=== PATIENT | male | born 1940 | race Caucasian/White ===

== ENCOUNTER 2017-12-05 23:20 | Inpatient (IN) | payer OTHER, MEDICARE ==
[~2017-12-05] VITALS: Ht 172.7 cm; Wt 88.6 kg
--- NOTE | 2017-12-05 23:29 | ED GENERAL ADULT ---
History of Present Illness General Chief Complaint: General Adult Stated Complaint: BIBA, FEVER, AMS Source: patient, family, old records, EMS Exam Limitations: no limitations Vital Signs & Intake/Output Vital Signs & Intake/Output Vital Signs Date Time Temp Pulse Resp B/P B/P Pulse O2 O2 Flow FiO2 Mean Ox Delivery Rate 12/06 0314 Room Air 12/06 0307 98.0 64 20 93/50 98 Room Air 12/06 0146 100.4 12/06 0142 100.4 71 19 115/49 96 Room Air 12/06 0038 98.3 91 18 120/48 99 Room Air 12/06 0014 103.3 12/05 2326 103.3 88 23 153/60 98 Room Air ED Intake and Output 12/06 0000 12/05 1200 Intake Total 1000 Output Total Balance 1000 Intake, IV 1000 Patient 190 lb Weight Allergies Coded Allergies: acetaminophen (From PERCOCET) (Intermediate, HALLUCINATION 10/10/17) oxycodone (From PERCOCET) (Intermediate, HALLUCINATION 10/10/17) Reconcile Medications Amlodipine Besylate 5 MG TABLET 1 TAB PO DAILY htn (Reported) Atenolol 25 MG TABLET 1 TAB PO DAILY HTN (Reported) Imatinib Mesylate (Gleevec) 400 MG TABLET 400 MG PO DAILY cml (Reported) Prednisone 5 MG TABLET 2 TAB PO DAILY cml (Reported) Triage Note: PT BIBA FROM HOME FOR FEVER & AMS PER . PT ORIENTED TO PERSON ON ARRIVAL. BUT WONT ANSWER ANY OTHER QUESTIONS. PT FEBRILE 8 ALSO HAS A RASH ON RIGHT GROIN Triage Nurses Notes Reviewed? yes HPI: Patient was in his usual state of health until this evening when he went to bed earlier than normal. His went to check on him and found him febrile and confused in the bathroom. She then noticed a red area on his right upper thigh. Patient was slow to respond. His called EMS. Patient states that he has had a nonproductive cough since this evening. He denies any headache or neck pain. He denies any sore throat. There is no nausea or vomiting. Past History Travel History Traveled to [place] past 21 day No Medical History Any Pertinent Medical History? see below for history Cardiovascular: hypertension Renal: chronic kidney disease Cancer(s): leukemia Surgical History Surgical History: non-contributory Psychosocial History What is your primary language Upper Sorbian Tobacco Use: Cognitive Impairment ETOH Use: denies use Illicit Drug Use: denies illicit drug use, UTD Family History Hx Contributory? No Review of Systems Review of Systems Constitutional: Reports: see HPI, chills, fever. EENTM: Reports: no symptoms. Respiratory: Reports: see HPI, cough. Cardiovascular: Reports: no symptoms. GI: Reports: no symptoms. Genitourinary: Reports: no symptoms. Musculoskeletal: Reports: no symptoms. Skin: Reports: no symptoms. Neurological/Psychological: Reports: no symptoms. Hematologic/Endocrine: Reports: no symptoms. Immunologic/Allergic: Reports: no symptoms. All Other Systems: Reviewed and Negative Physical Exam Physical Exam General Appearance: well developed/nourished, alert, awake, anxious, moderate distress Head: atraumatic, normal appearance Eyes: Bilateral: PERRL, EOMI. Ears, Nose, Throat: normal pharynx, normal ENT inspection, DRY MUCOSA Neck: normal inspection, supple, full range of motion, NO MENENGEAL SIGNS Respiratory: normal breath sounds, chest non-tender, no respiratory distress, lungs clear Cardiovascular: regular rate/rhythm, normal peripheral pulses, NO MURMUR Gastrointestinal: normal bowel sounds, soft, non-tender, no organomegaly Back: normal inspection, normal range of motion Extremities: normal inspection, normal capillary refill, normal range of motion, pedal edema Neurologic/Psych: no motor/sensory deficits, awake, alert, oriented x 3, normal mood/affect Skin: ERYTHMEA AND WARMTH RIGHT UPPER THIGH EXTENDING INTO GROIN Lymphatic: RIGHT INGUINAL ADENOPATHY Core Measures ACS in differential dx? No CVA/TIA Diagnosis: No Sepsis Present: Yes Sepsis Focused Exam Completed? Yes ED Sepsis Exam Date of Focused Sepsis Exam: 12/06/17 Time of Focused Sepsis Exam: 0047 Sepsis Cardiac Exam: Regular Rate/Rhythm Sepsis Resp Exam: CTA Sepsis Cap Refill Exam: <2 Sec Sepsis Peripheral Pulse Exam: Normal Sepsis Peripheral Pulse Location: Radial Sepsis Skin Color Exam: Normal for Ethnicity Skin Temp/Moisture Exam: Warm/Dry Progress Differential Diagnoses I considered the following diagnoses in my evaluation of the patient: [SEPSIS, CELLULTIIS, FORNYR'S] Plan of Care: Orders Procedure Date/time Status CBC WITHOUT DIFFERENTIAL 12/07 599 Active BASIC ELECTROLYTES PLUS BUN&CR 12/07 599 Active Heart Healthy Diet 12/06 B Active EKG 12/06 0341 Active Weight 12/06 0313 Complete Vital Signs 12/06 031 Complete Teach/Educate 12/06 312 Active Pain Treatment and Response 12/06 312 Active Nutritional Intake, Monitor 12/06 312 Active Isolation 12/06 312 Active Intake & Output 12/06 312 Active Patient Care Conference 12/06 312 Active Activity/Ambulation 12/06 312 Active LACTIC ACID 12/06 228 Complete Pathway - chart 12/06 0216 Active Patient Data 12/06 020 Active ED Holding Orders 12/06 146 Active Admit to inpatient 12/06 014 Active Vital Signs 12/06 014 Active Code Status 12/06 014 Active House Staff 12/06 UNK Active Vital Signs 12/06 UNK Complete Elevate 12/06 UNK Active Activity/Ambulation 12/06 UNK Active Telemetry/Medical Billing Service 12/05 232 Complete CULTURE,URINE 12/05 2328 Active BLOOD CULTURE 12/05 2328 Active URINALYSIS 12/05 232 Complete TROPONIN LEVEL 12/05 232 Complete LACTIC ACID 12/05 2328 Complete COMPREHENSIVE METABOLIC PANEL 12/05 2328 Complete CBC WITHOUT DIFFERENTIAL 12/05 2328 Complete EKG 12/05 2328 Active Intake & Output 12/05 2325 Active Current Medications Sig/Ross Start time Last Medication Dose Stop Time Status Admin Amlodipine Besylate 5 MG DAILY 12/06 899 AC (Norvasc) Atenolol 25 MG DAILY 12/06 899 AC (Tenormin) Fluconazole 100 MG DAILY 12/06 899 AC (Diflucan 100MG Tab) Prednisone 5 MG DAILY 12/06 09 AC Heparin Sodium 5,000 UNIT Q8 12/06 0600 AC 12/06 (Porcine) 0608 Laboratory Tests 12/06/17 0220: Lactic Acid 0.8 12/05/17 2345: Urine Color STRAW, Urine Clarity HAZY H, Urine pH 6.0, Ur Specific [place] 1.020, Urine Protein 100 H, Urine Ketones NEG, Urine Nitrite NEG, Urine Bilirubin NEG, Urine Urobilinogen 0.2, Ur Leukocyte Esterase NEG, Ur Microscopic SEDIMENT EXAMINED, Urine RBC 10-15 H, Urine WBC 1-3 H, Ur Epithelial Cells RARE, Urine Bacteria RARE H, Urine Mucus FEW, Urine Hemoglobin LARGE H, Urine Glucose NEG 12/05/17 2330: Anion Gap 15, Estimated GFR 15 L, BUN/Creatinine Ratio 16.4, Glucose 75, Lactic Acid 1.6, Calcium 8.1 L, Total Bilirubin 0.7, AST 21, ALT 30, Alkaline Phosphatase 35, Troponin I 0.08, Total Protein 5.6 L, Albumin 3.2 L, Globulin 2.4, Albumin/Globulin Ratio 1.3, CBC w Diff MAN DIFF ORDERED, RBC 3.05 L, MCV 94.7 H, MCH 31.6 H, MCHC 33.3, RDW 17.0 H, MPV 8.4, Gran % 92.0 H, Lymphocytes % 2.4 L, Monocytes % 5.5, Eosinophils % 0.1, Basophils % 0, Absolute Granulocytes 19.6 H, Segmented Neutrophils 90 H, Absolute Lymphocytes 0.5 L, Lymphocytes 4 L, Monocytes 6, Absolute Monocytes 1.2 H, Absolute Eosinophils 0, Absolute Basophils 0, Platelet Estimate ADEQUATE, Normochromic RBCs VERIFIED, Poikilocytosis 1+, Ovalocytes 1+, Elliptocytes FEW, Fld Total RBCs Counted 100 Microbiology 12/05 2344 URINE ROUT: Urine Culture - RECD 12/05 2344 BLOOD: Blood Culture - RECD 12/05 2329 BLOOD: Blood Culture - RECD Diagnostic Imaging: Viewed by Me: Radiology Read, CT Scan. Discussed w/RAD: Radiology Read, CT Scan. Radiology Impression: PATIENT: NIKHIL ARTHUR PRESENT AGE: 77 PATIENT ACCOUNT NO: [id number] : 41 LOCATION: [facility] ORDERING PHYSICIAN: Evin Nayak MD SERVICE DATE: 12/05/17 EXAM TYPE: CAT - CT ABD & PELVIS W/O IV CONTRAS EXAMINATION: CT ABDOMEN AND PELVIS WITHOUT CONTRAST CLINICAL INFORMATION: 77-year-old male patient with cellulitis extending into groin. Sepsis. Presumptive diagnoses: Teja's gangrene COMPARISON: None TECHNIQUE: Multidetector volumetric imaging was performed from the superior aspect of the liver through the pubic symphysis. Sagittal and coronal reformatted images were obtained on the technologist's workstation. DLP: 588 mGy-cm FINDINGS: Semiconductor Wafer Inspector: The patient's had a total right hip arthroplasty and extensive posterior spinal fusion of the thoracolumbar spine. This hardware results in significant beam hardening artifact which limits the study. There is mild dilatation of air-filled loops of jejunum but no obstruction is suspected. LUNG BASES: There is some calcification of the aortic valve. A pleural-based nodule measuring 1.2 cm is located in the posterior right costophrenic sulcus. Breathing motion artifact limits evaluation of the lungs. There is a small hiatal hernia. LIVER, GALLBLADDER, AND BILIARY TREE: The liver is normal in size showing no masses or bile duct dilatation. The gallbladder if present is entirely contracted. PANCREAS: Unremarkable. SPLEEN: Unremarkable. ADRENAL GLANDS: Unremarkable. KIDNEYS AND URETERS: Multiple artifacts obscure the renal beds and kidneys. There is bilateral perinephric stranding thought to be chronic. Neither kidney shows evidence of hydronephrosis. Probable exophytic cyst arises in both lower poles. BLADDER: Normal as visualized but evaluation limited. GASTROINTESTINAL TRACT: Multiple diverticula arise from the left colon. There is no sign of free fluid or free air. ABDOMINAL WALL: There is no indication of subcutaneous emphysema of the groin as would be expected in Teja's gangrene. LYMPH NODES: A large soft tissue mass measuring 4 cm is located in the right groin. This could represent an abnormally enlarged lymph node. Other smaller inguinal lymph nodes are seen bilaterally. VASCULAR: Diffuse calcific atherosclerosis is present. The aorta is tortuous. PELVIC VISCERA: The prostate does not appear to be enlarged. Small fat-containing inguinal hernias are seen bilaterally. OSSEOUS STRUCTURES: There are multiple endplate depressions of the lower thoracic and upper lumbar spine. The posterior spinal fusion traverses these levels. Defects in the left iliac bone are due to bone harvest sites for the posterior spinal fusion. There is no indication of hardware failure. IMPRESSION: 1. No findings that would support a diagnosis of Teja's gangrene. 2. Right inguinal soft tissue mass, question node. 3. Study limited by motion and beam hardening artifacts. DICTATED BY: Ward Ryder MD DATE/TIME DICTATED:12/06/1755 PHARMACIST PER DIEM:ANNMARIE DATE/TIME TRANSCRIBED:12/06/1755 CONFIDENTIAL, DO NOT COPY WITHOUT APPROPRIATE AUTHORIZATION. <Electronically signed in Other Vendor System> SIGNED BY: Ward Ryder MD 12/06/17 0118 CXR Impression: PATIENT: NIKHIL ARTHUR PRESENT AGE: 77 PATIENT ACCOUNT NO: [id number] : 41 LOCATION: [facility] ORDERING PHYSICIAN: Evin Nayak MD SERVICE DATE: 12/05/17 EXAM TYPE: RAD - XRY-PORTABLE CHEST XRAY EXAMINATION: XR PORTABLE CHEST CLINICAL INFORMATION: 77-year-old male patient with cough and fever. COMPARISON: None TECHNIQUE: Portable AP semierect view of the chest was obtained. FINDINGS: The heart is top normal in size. There is moderate uncoiling of the thoracic aorta. Lungs are symmetrically aerated and clear showing no sign of consolidation or atelectasis. IMPRESSION: No pneumonia. DICTATED BY: Ward Ryder MD DATE/TIME DICTATED: 12/06/17114 PHARMACIST PER DIEM:ANNMARIE DATE/TIME TRANSCRIBED:12/06/17114 CONFIDENTIAL, DO NOT COPY WITHOUT APPROPRIATE AUTHORIZATION. <Electronically signed in Other Vendor System> SIGNED BY: Ward Ryder MD 12/06/17118 Initial ED EKG: SR WITH PACS, NSSTRT CHANGES Prior EKG: unchanged Rhythm Strip: normal sinus rhythm Departure Departure Disposition: STILL A PATIENT Condition: Guarded Clinical Impression Primary Impression: Sepsis Secondary Impressions: Cellulitis Referrals: Jose MUHAMMAD,Paras Sousa (PCP/Family) Departure Forms: Customer Survey General Discharge Information Admission Note Spoke With: Leslye Rios MD Documentation of Exam: Documentation of any treatments & extenuating circumstances including Concerns Regarding Discharge (functional status, medication knowledge or non-compliance, living conditions, etc.) that warrant an admission rather than observation: [IV fluids, IV antibiotics, follow-up cultures, ID consultation, renal consultation] Critical Care Note Critical Care Note Critical Care Time: mins: (90 MIN)
[2017-12-06 00:11] LABS: ABSOLUTE BASOPHIL COUNT 0 /CUMM (0.0-0.2); ABSOLUTE EOSINOPHIL COUNT 0 /CUMM (0.0-0.7); ABSOLUTE GRANULOCYTE CT 19.6 /CUMM (1.4-6.5); ABSOLUTE LYMPH COUNT 0.5 /CUMM (1.2-3.4); ABSOLUTE MONOCYTE COUNT 1.2 /CUMM (0.10-0.60); BASOPHIL % 0 % (0.0-2.0); EOSINOPHIL % 0.1 % (0-5); HEMATOCRIT 28.9 % (42-52); MEAN CORPUSCULAR HGB 31.6 PG (27.0-31.0); MEAN CORPUSCULAR HGB CONC 33.3 G/DL (33.0-37.0); MEAN CORPUSCULAR VOLUME 94.7 FL (80.0-94.0); MEAN PLATELET VOLUME 8.4 FL (7.4-10.4); PLATELET COUNT 246 /CUMM (130-400); RED BLOOD CELL CT 3.05 /CUMM (4.70-6.10); WHITE BLOOD CELL COUNT 21.3 /CUMM (4.8-10.8)
--- NOTE | 2017-12-06 01:18 | CT SCAN REPORT ---
EXAMINATION: CT ABDOMEN AND PELVIS WITHOUT CONTRAST CLINICAL INFORMATION: 77-year-old male patient with cellulitis extending into groin. Sepsis. Presumptive diagnoses: Teja's gangrene COMPARISON: None TECHNIQUE: Multidetector volumetric imaging was performed from the superior aspect of the liver through the pubic symphysis. Sagittal and coronal reformatted images were obtained on the technologist's workstation. DLP: 588 mGy-cm FINDINGS: Yoga Teacher: The patient's had a total right hip arthroplasty and extensive posterior spinal fusion of the thoracolumbar spine. This hardware results in significant beam hardening artifact which limits the study. There is mild dilatation of air-filled loops of jejunum but no obstruction is suspected. LUNG BASES: There is some calcification of the aortic valve. A pleural-based nodule measuring 1.2 cm is located in the posterior right costophrenic sulcus. Breathing motion artifact limits evaluation of the lungs. There is a small hiatal hernia. LIVER, GALLBLADDER, AND BILIARY TREE: The liver is normal in size showing no masses or bile duct dilatation. The gallbladder if present is entirely contracted. PANCREAS: Unremarkable. SPLEEN: Unremarkable. ADRENAL GLANDS: Unremarkable. KIDNEYS AND URETERS: Multiple artifacts obscure the renal beds and kidneys. There is bilateral perinephric stranding thought to be chronic. Neither kidney shows evidence of hydronephrosis. Probable exophytic cyst arises in both lower poles. BLADDER: Normal as visualized but evaluation limited. GASTROINTESTINAL TRACT: Multiple diverticula arise from the left colon. There is no sign of free fluid or free air. ABDOMINAL WALL: There is no indication of subcutaneous emphysema of the groin as would be expected in Teja's gangrene. LYMPH NODES: A large soft tissue mass measuring 4 cm is located in the right groin. This could represent an abnormally enlarged lymph node. Other smaller inguinal lymph nodes are seen bilaterally. VASCULAR: Diffuse calcific atherosclerosis is present. The aorta is tortuous. PELVIC VISCERA: The prostate does not appear to be enlarged. Small fat-containing inguinal hernias are seen bilaterally. OSSEOUS STRUCTURES: There are multiple endplate depressions of the lower thoracic and upper lumbar spine. The posterior spinal fusion traverses these levels. Defects in the left iliac bone are due to bone harvest sites for the posterior spinal fusion. There is no indication of hardware failure. IMPRESSION: 1. No findings that would support a diagnosis of Teja's gangrene. 2. Right inguinal soft tissue mass, question node. 3. Study limited by motion and beam hardening artifacts.
--- NOTE | 2017-12-06 01:19 | RADIOLOGY REPORT ---
EXAMINATION: XR PORTABLE CHEST CLINICAL INFORMATION: 77-year-old male patient with cough and fever. COMPARISON: None TECHNIQUE: Portable AP semierect view of the chest was obtained. FINDINGS: The heart is top normal in size. There is moderate uncoiling of the thoracic aorta. Lungs are symmetrically aerated and clear showing no sign of consolidation or atelectasis. IMPRESSION: No pneumonia.
--- NOTE | 2017-12-06 02:07 | History & Physical ---
Kirk Benitez 12/06/17 0206: General Information and HPI MD Statement: I have seen and personally examined MILO ARTHUR and documented this H&P. The patient is a 77 year old M who presented with a patient stated chief complaint of [chills x1day]. 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 Patient is alert and oriented 3, but confused as to why he came into the ED today. Patient's was called, who states that patient has been lethargic for the past week. States patient had went to bed early today, and woke up confused with a high fever and a rash on the right lower extremity. Patient's states that she only noticed a rash today. Patient's denied any falls per patient, states that he is alert and oriented, continent of urine and feces at home. Patient's became anxious on the phone, asked questions regarding prognosis, was unable to give further history. Past medical history: CKD stage IV/ESRD, CML, hypertension, melanoma Allergies: Oxycodone Surgeries: Melanoma removal Social history: Unobtainable Review of systems Positive for: Rash, chills, fever Negative for: Dizziness, weight loss, chest pain, shortness of breath, urinary symptoms, lower extremity edema Allergies/Medications Allergies: Coded Allergies: acetaminophen (From PERCOCET) (Intermediate, HALLUCINATION 10/10/17) oxycodone (From PERCOCET) (Intermediate, HALLUCINATION 10/10/17) Past History Travel History Traveled to [place] past 21 day No Medical History Cardiovascular: hypertension Renal: chronic kidney disease Cancer(s): leukemia Surgical History Surgical History: non-contributory Past Family/Social History Psychosocial History ETOH Use: denies use Illicit Drug Use: denies illicit drug use, UTD Review of Systems Review of Systems Constitutional: Reports: see HPI. Exam & Diagnostic Data Last 24 Hrs of Vital Signs/I&O Vital Signs Date Time Temp Pulse Resp B/P B/P Pulse O2 O2 Flow FiO2 Mean Ox Delivery Rate 12/06 0314 Room Air 12/06 0307 98.0 64 20 93/50 98 Room Air 12/06 0146 100.4 08/01 0142 100.4 71 19 115/49 96 Room Air 12/06 0038 98.3 91 18 120/48 99 Room Air 12/06 0014 103.3 12/05 2326 103.3 88 23 153/60 98 Room Air Intake & Output 12/06 0800 12/06 0000 12/05 1600 Intake Total 1350 1000 Output Total Balance 1350 1000 Intake, IV 1350 1000 Patient 195 lb 190 lb Weight Weight Bed scale Measurement Method Physical Exam General Appearance Alert, Oriented X3, No Acute Distress, incontinent of feces and urine with stool on thighs Skin large erythematous rash on R thigh extending to scrotum and L thigh marked in surgical marker; fungal rash in intertriginous area under abdominal pannus; scrotal swelling with excoriations; several small red/violaceous lesions on b/l upper extremities Skin Temp/Moisture Exam: Warm/Dry Cardiovascular Regular Rate, Normal S1, Normal S2 Lungs Clear to Auscultation, Normal Air Movement Abdomen Soft, No Tenderness, white erythematous lesion on underside of pannus in intertriginous area Neurological Normal Speech Extremities large swelling to R elbow, mobile, nontender; small swelling to L tibial tuberosity legion mobile nontender Body Front and Back (Adult) 1) scrotal swelling 2) red nonraised rash, nonpurulent Last 24 Hrs of Labs/[place]: Laboratory Tests 12/06/17 0220: Lactic Acid 0.8 12/05/17 2345: Urine Color STRAW, Urine Clarity HAZY H, Urine pH 6.0, Ur Specific [place] 1.020, Urine Protein 100 H, Urine Ketones NEG, Urine Nitrite NEG, Urine Bilirubin NEG, Urine Urobilinogen 0.2, Ur Leukocyte Esterase NEG, Ur Microscopic SEDIMENT EXAMINED, Urine RBC 10-15 H, Urine WBC 1-3 H, Ur Epithelial Cells RARE, Urine Bacteria RARE H, Urine Mucus FEW, Urine Hemoglobin LARGE H, Urine Glucose NEG 12/05/17 2330: Anion Gap 15, Estimated GFR 15 L, BUN/Creatinine Ratio 16.4, Glucose 75, Lactic Acid 1.6, Calcium 8.1 L, Total Bilirubin 0.7, AST 21, ALT 30, Alkaline Phosphatase 35, Troponin I 0.08, Total Protein 5.6 L, Albumin 3.2 L, Globulin 2.4, Albumin/Globulin Ratio 1.3, CBC w Diff MAN DIFF ORDERED, RBC 3.05 L, MCV 94.7 H, MCH 31.6 H, MCHC 33.3, RDW 17.0 H, MPV 8.4, Gran % 92.0 H, Lymphocytes % 2.4 L, Monocytes % 5.5, Eosinophils % 0.1, Basophils % 0, Absolute Granulocytes 19.6 H, Segmented Neutrophils 90 H, Absolute Lymphocytes 0.5 L, Lymphocytes 4 L, Monocytes 6, Absolute Monocytes 1.2 H, Absolute Eosinophils 0, Absolute Basophils 0, Platelet Estimate ADEQUATE, Normochromic RBCs VERIFIED, Poikilocytosis 1+, Ovalocytes 1+, Elliptocytes FEW, Fld Total RBCs Counted 100 Microbiology 12/05 2344 URINE ROUT: Urine Culture - RECD 12/05 2344 BLOOD: Blood Culture - RECD 12/05 2329 BLOOD: Blood Culture - RECD Assessment/Plan Assessment: Mr Arthur is a 77yo M with PMH 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, CKD stage 4/5, melanoma, HTN, BIBA with scrotal swelling and fever, A/Ox3 but unable to give history; admitted for scrotal cellulitis #Scrotal Cellulitis -Area of erythema marked with surgical marker #Toxic encephalopathy #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 home meds #CKD 4/5 will talk with nephro in the a.m. #Hypertension DVT prophylaxis IV access Regular diet Full code Disposition As Ranked By This Provider Problem List: 1. Cellulitis Core Measures/Misc (01/22) Acute Coronary Syndrome ACS Diagnosis: No Congestive Heart Failure Congestive Heart Failure Diagnosis No Cerebrovascular Accident CVA/TIA Diagnosis: No VTE (View Protocol) VTE Risk Factors Age>40 No Mechanical VTE Prophylaxis d/t N/A MechProphylax Ordered No VTE Pharm Prophylaxis d/t NA PharmProphylax ordered Sepsis (View protocol) Sepsis Present: No If YES complete Sepsis Event Note If YES complete Sepsis Event Note Sandhya Hodges 12/06/17 0250: General Information and HPI Allergies/Medications Home Med list Amlodipine Besylate 5 MG TABLET 1 TAB PO DAILY htn (Reported) Atenolol 25 MG TABLET 1 TAB PO DAILY HTN (Reported) Imatinib Mesylate (Gleevec) 400 MG TABLET 400 MG PO DAILY cml (Reported) Prednisone 5 MG TABLET 2 TAB PO DAILY cml (Reported) Core Measures/Misc (01/22) Sepsis (View protocol) If YES complete Sepsis Event Note If YES complete Sepsis Event Note Resident Review Statement Resident Statement: examined this patient, discussed with international marketing coordinator, agreed with international marketing coordinator Other Findings: 77-year-old man from home, with past medical history significant for CML in remission, on Gleevec and chronic prednisone, CKD stage V/end-stage renal disease, history of melanoma, brought in by for altered mental status and a rash which she noticed on his right thigh. We are unable to obtain any history from patient and give us minimal history. Apparently she noticed him to be altered and noticed a rash on his thigh on day of admission. This was associated with some undocumented fevers and chills and she called the ambulance. Vitals in ED T-max 103.3, heart rate 71, respiratory rate 19, blood pressure 153/60 trended down to 115/49 on examination he was awake and alert oriented to person place and date however he was unable to give any further history as to why he was here in this hospital was not able to tell if any of his medications. Examination significant for erythema this nonraised rash which extended from his right thigh over inguinal region to left thigh. His scrotal area was swollen with some skin excoriation and some whitish lesion in inguinal area. When we saw him he was incontinent with urine and stool. Labs significant for leukocytosis of 21.3 with left shift, anemia of chronic disease, normal lactic acid. CT abdomen and pelvis without IV contrast was significant for a 4 cm soft tissue mass in the right groin Problem list: AMS Scrotal cellulitis secondary to bacterial versus fungal CML on Gleevec Hypertension Plan: Admit to general medicine floor, vitals per protocol He was given vancomycin and ceftazidime in the ED, will continue with IV Unasyn and p.o. fluconazole to cover for possible fungal etiology, pending blood cultures ID consult in a.m. Per he was supposed to see Dr. Callahan today and have Epogen dosed. Please inform nephro of his admission We will continue his home medications of prednisone, atenolol, Norvasc. We do not have Gleevec, this will have to be brought from home. DVT prophylaxis subcu heparin Patient is a full code Gabriel MUHAMMAD,Leslye 12/06/17 0402: Core Measures/Misc (01/22) Sepsis (View protocol) If YES complete Sepsis Event Note If YES complete Sepsis Event Note Attending MD Review Statement Attending Statement Attending MD Statement: examined this patient, discuss w/resident/PA/NET APPLICATION ARCHITECT, agreed w/resident/PA/NET APPLICATION ARCHITECT Attending Assessment/Plan: This is a 77-year-old male admitted to the hospital after being found confused in the bathroom by his . He was admitted to the hospital with sepsis secondary to scrotal cellulitis. In the emergency department patient received ceftaz and vancomycin. We will follow-up blood cultures, monitor CBC and fever curve. Patient will remain on Unasyn and an infectious disease consultation has been placed.
[2017-12-06 03:07] VITALS: BP 93/50
[2017-12-06] MEDS ORDERED: AMLODIPINE BESYL5 M1 PO (04:59)
[2017-12-06] MEDS ORDERED: GLEEVEC400 M1 PO (04:59)
[2017-12-06] MEDS ORDERED: PREDNISONE5 M1 PO (04:59)
[2017-12-06] MEDS ORDERED: ATENOLOL25 M1 PO (05:03)
[2017-12-06 07:09] VITALS: BP 90/50
--- NOTE | 2017-12-06 08:08 | PN- Housestaff ---
See Addendum Subjective Follow-up For: Scrotal cellulitis Subjective: Low grade temperature overnight that has since resolved this AM. Patient denies any pain or swelling in the scrotal or inguinal region. Patient states he thinks his rash is improving, but admits to being fatigued this morning and has not gotten up yet. Patient denies chest pain, dyspnea, diarrhea, dysuria, and chills. Patient otherwise is tolerating treatment as required. Review of Systems Constitutional: Reports: see HPI. Objective Last 24 Hrs of Vital Signs/I&O Vital Signs Date Time Temp Pulse Resp B/P B/P Pulse O2 O2 Flow FiO2 Mean Ox Delivery Rate 12/06 0821 53 90/50 / 0820 53 90/50 12/06 0709 98.7 53 20 90/50 97 Room Air 12/06 0314 Room Air 12/06 0307 98.0 64 20 93/50 98 Room Air 12/06 0146 100.4 12/06 0142 100.4 71 19 115/49 96 Room Air 12/06 0038 98.3 91 18 120/48 99 Room Air 12/06 0014 103.3 12/05 2326 103.3 88 23 153/60 98 Room Air Intake & Output 12/06 1600 12/06 0800 08 0000 Intake Total 1470 1000 Output Total Balance 1470 1000 Intake, IV 1350 1000 Intake, Oral 120 Patient 195 lb 190 lb Weight Weight Bed scale Measurement Method Physical Exam General Appearance: Alert, Oriented X3, Cooperative, Mild Distress Skin: Erythematous lesion noted in right injuinal region extending to scrotal region. Non-tender on palpation, no significant edema noted. HEENT: Atraumatic, PERRLA Neck: Supple, No JVD Cardiovascular: Regular Rate, Normal S1, Normal S2 Lungs: Clear to Auscultation, Normal Air Movement Abdomen: Soft, No Tenderness Extremities: Normal Pulses Assessment/Plan Assessment: Mr Obrien is a 77yo M with PMH 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, CKD stage 4/5, melanoma, HTN, BIBA with scrotal swelling and fever, A/Ox3 but unable to give history; admitted for scrotal cellulitis #Scrotal Cellulitis -Area of erythema marked with surgical marker #Toxic encephalopathy #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 home meds #CKD 4/5 #Hypertension Problem List: 1. Cellulitis Pain Ratin Pain Location: No pain noted on exam Pain Goal: Remain pain free Pain Plan: As above Tomorrow's Labs & Rationales: CBC BEP
[2017-12-06 08:50] LABS: ABSOLUTE BASOPHIL COUNT 0 /CUMM (0.0-0.2); ABSOLUTE EOSINOPHIL COUNT 0 /CUMM (0.0-0.7); ABSOLUTE GRANULOCYTE CT 30.7 /CUMM (1.4-6.5); ABSOLUTE MONOCYTE COUNT 1.8 /CUMM (0.10-0.60); BASOPHIL % 0.1 % (0.0-2.0); EOSINOPHIL % 0 % (0-5); GRANULOCYTE % 91.6 % (42.2-75.2); HEMATOCRIT 27.3 % (42-52); MEAN CORPUSCULAR HGB 31.4 PG (27.0-31.0); MEAN CORPUSCULAR HGB CONC 33.2 G/DL (33.0-37.0); MEAN CORPUSCULAR VOLUME 94.5 FL (80.0-94.0); MEAN PLATELET VOLUME 7.6 FL (7.4-10.4); PLATELET COUNT 222 /CUMM (130-400); RED BLOOD CELL CT 2.89 /CUMM (4.70-6.10)
[2017-12-06 09:01] LABS: WHITE BLOOD CELL COUNT 33.5 /CUMM (4.8-10.8)
[2017-12-06 14:10] VITALS: BP 95/50
--- NOTE | 2017-12-06 16:14 | Cons- Infect Disease ---
General Information and HPI Consulting Request Date of Consult: 12/06/17 Requested By: Ryder Chandler MD Reason for Consult: Rule out scrotal cellulitis Source of Information: patient History of Present Illness: This is a 77-year-old man with a history of hypertension, chronic kidney disease and CML, maintained on Gleevec and prednisone, who noted a rash in his right groin 1 week prior to admission, admitted on December 05 with the acute onset of fever, chills and altered mental status. On admission he was febrile to 103.3. Laboratory data revealed a white blood cell count of 21,000, BUN/creatinine 64 and 3.9, with normal liver enzymes. Urinalysis 10-15 RBC/1-3 WBCs. Chest x-ray was negative. CT of the abdomen and pelvis was negative. He was given Vancomycin and Ceftazidime in the emergency room and this morning was changed to Unasyn and Fluconazole. He appears to have defervesced overnight and his mental status has normalized. At present he does not offer any complaints. He does report spending time outdoors, for example mowing his lawn. He does live in an area with deer but denies any recent tick bites. Allergies/Medications Allergies: Coded Allergies: acetaminophen (From PERCOCET) (Intermediate, HALLUCINATION 10/10/17) oxycodone (From PERCOCET) (Intermediate, HALLUCINATION 10/10/17) Home Med List: Amlodipine Besylate 5 MG TABLET 1 TAB PO DAILY htn (Reported) Atenolol 25 MG TABLET 1 TAB PO DAILY HTN (Reported) Imatinib Mesylate (Gleevec) 400 MG TABLET 400 MG PO DAILY cml (Reported) Prednisone 5 MG TABLET 2 TAB PO DAILY cml (Reported) Past History Travel History Traveled to [place] past 21 day No Medical History Blood Transfusion Hx: No Neurological: NONE EENT: NONE Cardiovascular: hypertension Respiratory: NONE Gastrointestinal: NONE Hepatic: NONE Renal: chronic kidney disease Musculoskeletal: NONE Psychiatric: NONE Endocrine: NONE Blood Disorders: NONE Cancer(s): melanoma, CML CLIENT EXECUTIVE/Reproductive: NONE Isolation History: Standard Surgical History Surgical History: 1 Psychosocial History Where Do You Live? Home Smoking Status: Never Smoked ETOH Use: denies use Illicit Drug Use: denies illicit drug use, UTD Review of Systems Review of Systems All Other Systems: Reviewed and Negative Exam & Diagnostic Data Last 24 Hrs of Vital Signs/I&O Vital Signs Date Time Temp Pulse Resp B/P B/P Pulse O2 O2 Flow FiO2 Mean Ox Delivery Rate 12/06 1410 97.8 62 20 95/50 97 Room Air 12/06 0821 53 90/50 12/06 0820 53 90/50 12/06 0709 98.7 53 20 90/50 97 Room Air 12/06 0314 Room Air 12/06 0307 98.0 64 20 93/50 98 Room Air 12/06 0146 100.4 12/06 0142 100.4 71 19 115/49 96 Room Air 12/06 0038 98.3 91 18 120/48 99 Room Air 12/06 0014 103.3 12/05 2326 103.3 88 23 153/60 98 Room Air Intake & Output 12/06 1600 12/06 0800 12/06 0000 Intake Total 750 1470 1000 Output Total 300 Balance 450 1470 1000 Intake, IV 1350 1000 Intake, Oral 750 120 Output, Urine 300 Patient 195 lb 190 lb Weight Weight Bed scale Measurement Method Physical Exam Other Physical Findings: He is awake and alert in no acute distress. T-max 103.3. Skin reveals a rash in the right groin, not warm or tender to palpation, with a clearing center, with a mild erythematous area in the left groin and with mild erythema in the suprapubic area. HEENT exam is negative. Neck is supple with no adenopathy. Lungs are clear. Heart regular rhythm with no murmur. Abdomen is soft, nontender with positive bowel sounds. Back no CVA tenderness. Extremities no cyanosis, clubbing or edema. Neuro is without focality. Last 24 Hours of Lab Results: Laboratory Tests 12/06 12/06 0840 0220 Chemistry Sodium (137 - 145 mmol/L) 141 Potassium (3.5 - 5.1 mmol/L) 4.2 Chloride (98 - 107 mmol/L) 113 H Carbon Dioxide (22 - 30 mmol/L) 15 L Anion Gap (5 - 16) 13 BUN (9 - 20 mg/dL) 65 H Creatinine (0.7 - 1.2 mg/dL) 4.2 H Estimated GFR (>60 ml/min) 14 L BUN/Creatinine Ratio (7 - 25 %) 15.5 Lactic Acid (0.7 - 2.1 mmol/L) 0.8 Hematology CBC w Diff MAN DIFF ORDERED WBC (4.8 - 10.8 /CUMM) 33.5 *H RBC (4.70 - 6.10 /CUMM) 2.89 L Hgb (14.0 - 18.0 G/DL) 9.1 L Hct (42 - 52 %) 27.3 L MCV (80.0 - 94.0 FL) 94.5 H MCH (27.0 - 31.0 PG) 31.4 H MCHC (33.0 - 37.0 G/DL) 33.2 RDW (11.5 - 14.5 %) 17.0 H Plt Count (130 - 400 /CUMM) 222 MPV (7.4 - 10.4 FL) 7.6 Gran % (42.2 - 75.2 %) 91.6 H Lymphocytes % (20.5 - 51.1 %) 2.9 L Monocytes % (1.7 - 9.3 %) 5.4 Eosinophils % (0 - 5 %) 0 Basophils % (0.0 - 2.0 %) 0.1 Absolute Granulocytes (1.4 - 6.5 /CUMM) 30.7 H Segmented Neutrophils (42.2 - 75.2 %) 89 H Band Neutrophils (0.0 - 5.0 %) 2 Absolute Lymphocytes (1.2 - 3.4 /CUMM) 1.0 L Lymphocytes (20.5 - 51.1 %) 4 L Monocytes (1.7 - 9.3 %) 4 Absolute Monocytes (0.10 - 0.60 /CUMM) 1.8 H Absolute Eosinophils (0.0 - 0.7 /CUMM) 0 Absolute Basophils (0.0 - 0.2 /CUMM) 0 Metamyelocytes (0.0 - 1.0 %) 1 Platelet Estimate (ADEQUATE) VERIFIED BY SMEAR Normocytic RBCs VERIFIED Normochromic RBCs VERIFIED 12/05 12/05 2345 2330 Chemistry Sodium (137 - 145 mmol/L) 142 Potassium (3.5 - 5.1 mmol/L) 4.1 Chloride (98 - 107 mmol/L) 111 H Carbon Dioxide (22 - 30 mmol/L) 15 L Anion Gap (5 - 16) 15 BUN (9 - 20 mg/dL) 64 H Creatinine (0.7 - 1.2 mg/dL) 3.9 H Estimated GFR (>60 ml/min) 15 L BUN/Creatinine Ratio (7 - 25 %) 16.4 Glucose (65 - 99 mg/dL) 75 Lactic Acid (0.7 - 2.1 mmol/L) 1.6 Calcium (8.4 - 10.2 mg/dL) 8.1 L Total Bilirubin (0.2 - 1.3 mg/dL) 0.7 AST (17 - 59 U/L) 21 ALT (21 - 72 U/L) 30 Alkaline Phosphatase (< 127 U/L) 35 Troponin I (<0.11 ng/ml) 0.08 Total Protein (6.3 - 8.2 g/dL) 5.6 L Albumin (3.5 - 5.0 g/dL) 3.2 L Globulin (1.9 - 4.2 gm/dL) 2.4 Albumin/Globulin Ratio (1.1 - 2.2 %) 1.3 Hematology CBC w Diff MAN DIFF ORDERED WBC (4.8 - 10.8 /CUMM) 21.3 H RBC (4.70 - 6.10 /CUMM) 3.05 L Hgb (14.0 - 18.0 G/DL) 9.6 L Hct (42 - 52 %) 28.9 L MCV (80.0 - 94.0 FL) 94.7 H MCH (27.0 - 31.0 PG) 31.6 H MCHC (33.0 - 37.0 G/DL) 33.3 RDW (11.5 - 14.5 %) 17.0 H Plt Count (130 - 400 /CUMM) 246 MPV (7.4 - 10.4 FL) 8.4 Gran % (42.2 - 75.2 %) 92.0 H Lymphocytes % (20.5 - 51.1 %) 2.4 L Monocytes % (1.7 - 9.3 %) 5.5 Eosinophils % (0 - 5 %) 0.1 Basophils % (0.0 - 2.0 %) 0 Absolute Granulocytes (1.4 - 6.5 /CUMM) 19.6 H Segmented Neutrophils (42.2 - 75.2 %) 90 H Absolute Lymphocytes (1.2 - 3.4 /CUMM) 0.5 L Lymphocytes (20.5 - 51.1 %) 4 L Monocytes (1.7 - 9.3 %) 6 Absolute Monocytes (0.10 - 0.60 /CUMM) 1.2 H Absolute Eosinophils (0.0 - 0.7 /CUMM) 0 Absolute Basophils (0.0 - 0.2 /CUMM) 0 Platelet Estimate (ADEQUATE) ADEQUATE Normochromic RBCs VERIFIED Poikilocytosis 1+ Ovalocytes 1+ Elliptocytes FEW Other Body Source Fld Total RBCs Counted (%) 100 Urines Urine Color (YEL,AMB,STR) STRAW Urine Clarity (CLEAR) HAZY H Urine pH (5.0 - 8.0) 6.0 Ur Specific [place] (1.001 - 1.035) 1.020 Urine Protein (NEG,<30 MG/DL) 100 H Urine Ketones (NEG) NEG Urine Nitrite (NEG) NEG Urine Bilirubin (NEG) NEG Urine Urobilinogen (0.1 - 1.0 EU/dl) 0.2 Ur Leukocyte Esterase (NEG) NEG Ur Microscopic SEDIMENT EXAMINED Urine RBC (0 - 5 /HPF) 10-15 H Urine WBC (0 - 2 /HPF) 1-3 H Ur Epithelial Cells (NONE,FEW) RARE Urine Bacteria (NEG/NONE) RARE H Urine Mucus (FEW,NONE) FEW Urine Hemoglobin (NEG) LARGE H Urine Glucose (N MG/DL) NEG Last 24 Hours of [place] Results: Blood cultures x 2 December 05 negative Urine culture December 05 pending Diagnostic Data Recent Imaging Findings: Chest x-ray negative CT of the abdomen and pelvis negative Assessment/Plan Assessment/Plan Impression: This is a 77-year-old man with a history of chronic kidney disease and CML, maintained on Gleevec and prednisone, who noted a rash in his right groin 1 week prior to admission, admitted on December 05 with the acute onset of fever, chills and altered mental status, found to be febrile with a rash in the right groin, leukocytosis and renal insufficiency, with a negative CT of the abdomen and pelvis. The etiology of his rash is unclear. The lesion is not warm, painful or tender; therefore I am not convinced that this represents a cellulitis and, with the area of clearing within the rash, which apparently spread over the past week, feel that this may represent erythema chronicum migrans, the rash associated with Lyme disease. He does spend time outdoors and has deer in the area; therefore this is certainly a possibility. He does recall a possible bull's-eye rash in the past and, if he has had Lyme disease in the past, a Lyme titer may not be helpful. His white blood cell count has increased today, but this is of unclear significance given his underlying CML. He is currently on Unasyn, which should cover Lyme disease as well as most of the organisms commonly associated with cellulitis; therefore this can be continued for now. Suggestion: 1. Would check a Lyme titer 2. Discontinue Fluconazole 3. Continue Unasyn but increase to 1.5 g IV every 12 hours Consult Acknowledgment - Thank you for your consult request.
--- NOTE | 2017-12-06 16:49 | Discharge Summary ---
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 Scrotal Cellulitis -Patient presented to the ED with his who stated that the patient has been lethargic for the past week. She states the patient had went to bed and woke up confused with a high fever and a rash on the right lower extremity. Patient noted to have an area of erythema in the right inguinal region. and so doubtful for MRSA. Per ID consult, subsequently discontinued Fluconazole and increased frequency of IV Unasyn to q12. -No growths on blood or urine cultures -ID recommended to be discharged on Augmentin PO 500 mg BID 2. 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 CKD 4/5 - Patient was evaluated by Dr. Pineda - Attempt to setup appointment at infusion center for Epogen - Sodium Bicarbonate 650 mg TID started 12/08\ Imaging EXAMINATION: CT ABDOMEN AND PELVIS WITHOUT CONTRAST CLINICAL INFORMATION: 77-year-old male patient with cellulitis extending into groin. Sepsis. Presumptive diagnoses: Teja's gangrene COMPARISON: None FINDINGS: Construction Skills Teacher: The patient's had a total right hip arthroplasty and extensive posterior spinal fusion of the thoracolumbar spine. This hardware results in significant beam hardening artifact which limits the study. There is mild dilatation of air-filled loops of jejunum but no obstruction is suspected. LUNG BASES: There is some calcification of the aortic valve. A pleural-based nodule measuring 1.2 cm is located in the posterior right costophrenic sulcus. Breathing motion artifact limits evaluation of the lungs. There is a small hiatal hernia. LIVER, GALLBLADDER, AND BILIARY TREE: The liver is normal in size showing no masses or bile duct dilatation. The gallbladder if present is entirely contracted. PANCREAS: Unremarkable. SPLEEN: Unremarkable. ADRENAL GLANDS: Unremarkable. KIDNEYS AND URETERS: Multiple artifacts obscure the renal beds and kidneys. There is bilateral perinephric stranding thought to be chronic. Neither kidney shows evidence of hydronephrosis. Probable exophytic cyst arises in both lower poles. BLADDER: Normal as visualized but evaluation limited. GASTROINTESTINAL TRACT: Multiple diverticula arise from the left colon. There is no sign of free fluid or free air. ABDOMINAL WALL: There is no indication of subcutaneous emphysema of the groin as would be expected in Teja's gangrene. LYMPH NODES: A large soft tissue mass measuring 4 cm is located in the right groin. This could represent an abnormally enlarged lymph node. Other smaller inguinal lymph nodes are seen bilaterally. VASCULAR: Diffuse calcific atherosclerosis is present. The aorta is tortuous. PELVIC VISCERA: The prostate does not appear to be enlarged. Small fat-containing inguinal hernias are seen bilaterally. OSSEOUS STRUCTURES: There are multiple endplate depressions of the lower thoracic and upper lumbar spine. The posterior spinal fusion traverses these levels. Defects in the left iliac bone are due to bone harvest sites for the posterior spinal fusion. There is no indication of hardware failure. IMPRESSION: 1. No findings that would support a diagnosis of Teja's gangrene. 2. Right inguinal soft tissue mass, question node. 3. Study limited by motion and beam hardening artifacts. Allergies: Coded Allergies: acetaminophen (From PERCOCET) (Intermediate, HALLUCINATION 10/10/17) oxycodone (From PERCOCET) (Intermediate, HALLUCINATION 10/10/17) Significant Procedures: CT ABD/PELVIS Pertinent Lab Results: 12/08 WBC: 15.2 HGB: 8.3 HCT: 25.1 Disposition Summary Disposition Principal Diagnosis: Scrotal Cellulitis Additional Diagnosis: CML, CKD Discharge Disposition: home or self care Discharge Instructions General Discharge Information Code Status: Full Code Patient's Diet: Regular diet, ad jeannine Patient's Activity: Resume normal activity, as tolerated Follow-Up Instructions/Appts: Please follow up with PCP in 7 days or sooner if symptoms worsen. Please follow up with End Packer (Dr. Dumont) outpatient within 2 weeks. Please take PO antibiotic medication Augmentin as prescribed twice daily to completion. Medications at Discharge Discharge Medications: Continue taking these medications: Imatinib Mesylate (Gleevec) 400 MG TABLET 400 Milligram ORAL DAILY Qty = 30 Comments: NOT GIVEN IN HOSPITAL Prednisone (Prednisone) 5 MG TABLET 2 Tablet ORAL DAILY Qty = 60 Comments: Last Taken:12/08/17 Time: 8:82AM Amlodipine Besylate (Amlodipine Besylate) 5 MG TABLET 1 Tablet ORAL DAILY Qty = 180 Comments: Last Taken:12/08/17 Time: 8:50AM Atenolol (Atenolol) 25 MG TABLET 1 Tablet ORAL DAILY Qty = 30 Comments: Last Taken:12/08/17 Time:8:51AM Start taking the following new medications: Augmentin (Augmentin 500-125 Tablet) 500 MG-125 MG TABLET 1 Tablet ORAL TWICE DAILY Qty = 8 No Refills Instructions: Please take one tablet in the morning and one tablet in the evening. Copies To: Jose MUHAMMAD,Paras Sousa Attending Review Statement Documenting Attending: Ryder Chandler MD
[2017-12-06 21:33] VITALS: BP 128/58
[2017-12-07 06:51] VITALS: BP 120/60
--- NOTE | 2017-12-07 08:01 | PN- Housestaff ---
See Addendum Subjective Follow-up For: Scrotal Cellulitis Subjective: Afebrile overnight. Patient notes he is feeling good today and that his inguinal rash has decreased in size. Patient denies any tenderness, pain, or swelling in the inguinal region where his rash is located. Patient notes he does work outside a bit but denies noticing any recent insect or tick bites of note. Patient otherwise denies any other concerns of chest pain, dyspnea, fevers, chills, and fatigue. Patient otherwise is tolerating treatment as required. Patient's family will bring in his Gleevac 400 mg to be taken as prescribed by Dr. Light. Review of Systems Constitutional: Reports: see HPI. Objective Last 24 Hrs of Vital Signs/I&O Vital Signs Date Time Temp Pulse Resp B/P B/P Pulse O2 O2 Flow FiO2 Mean Ox Delivery Rate 12/07 0939 64 120/60 12/07 0939 64 120/60 12/07 0651 98.5 64 18 120/60 98 12/06 2133 98.3 61 18 128/58 98 Room Air 12/06 1410 97.8 62 20 95/50 97 Room Air Intake & Output 12/07 1600 12/07 0800 12/07 0000 Intake Total 120 240 Output Total Balance 120 240 Intake, Oral 120 240 Number 1 Bowel Movements Physical Exam General Appearance: Alert, Oriented X3, Cooperative, No Acute Distress Skin: Erythematous rash noted in right inguinal region, decreased from prior HEENT: Atraumatic Cardiovascular: Regular Rate, Normal S1, Normal S2 Lungs: Clear to Auscultation, Normal Air Movement Abdomen: Soft, No Tenderness Extremities: No Edema, Normal Pulses Assessment/Plan Assessment: Mr Obrien is a 77yo M with PMH 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 Cellulitis Pain Ratin Pain Location: No pain elicted Pain Goal: Remain pain free Pain Plan: As above Tomorrow's Labs & Rationales: Routine labs
[2017-12-07 08:14] LABS: ABSOLUTE BASOPHIL COUNT 0 /CUMM (0.0-0.2); ABSOLUTE EOSINOPHIL COUNT 0 /CUMM (0.0-0.7); ABSOLUTE GRANULOCYTE CT 20.9 /CUMM (1.4-6.5); ABSOLUTE LYMPH COUNT 0.8 /CUMM (1.2-3.4); ABSOLUTE MONOCYTE COUNT 1.1 /CUMM (0.10-0.60); BASOPHIL % 0 % (0.0-2.0); EOSINOPHIL % 0 % (0-5); HEMATOCRIT 25.8 % (42-52); MEAN CORPUSCULAR HGB 31.4 PG (27.0-31.0); MEAN CORPUSCULAR HGB CONC 33.3 G/DL (33.0-37.0); MEAN CORPUSCULAR VOLUME 94.4 FL (80.0-94.0); MEAN PLATELET VOLUME 8.3 FL (7.4-10.4); RBC DISTRIBUTION WIDTH 17.6 % (11.5-14.5); RED BLOOD CELL CT 2.73 /CUMM (4.70-6.10); WHITE BLOOD CELL COUNT 22.7 /CUMM (4.8-10.8)
[2017-12-07 08:53] LABS: GRANULOCYTE % 91.9 % (42.2-75.2); PLATELET COUNT 216 /CUMM (130-400)
--- NOTE | 2017-12-07 12:02 | PN- Infect Dx ---
Subjective Subjective: Afebrile without complaints Objective Last 24 Hrs of Vital Signs/I&O Vital Signs Date Time Temp Pulse Resp B/P B/P Pulse O2 O2 Flow FiO2 Mean Ox Delivery Rate 12/07 0839 64 120/60 12/07 0939 64 120/60 12/07 0651 98.5 64 18 120/60 98 12/06 2133 98.3 61 18 128/58 98 Room Air 12/06 1410 97.8 62 20 95/50 97 Room Air Intake & Output 12/07 1600 12/07 0800 12/07 0000 Intake Total 120 240 Output Total Balance 120 240 Intake, Oral 120 240 Number 1 Bowel Movements Physical Exam Other Physical Findings: He appears comfortable in no acute distress decreased right inguinal/upper thigh erythema, with increased swelling compared to the left thigh and mildly warm and tender medially; suprapubic candidiasis, with a slight area of erythema in the left groin Results Last 24 Hours of Lab Results: Laboratory Tests 12/07 0700 Chemistry Sodium (137 - 145 mmol/L) 138 Potassium (3.5 - 5.1 mmol/L) 4.1 Chloride (98 - 107 mmol/L) 112 H Carbon Dioxide (22 - 30 mmol/L) 13 L Anion Gap (5 - 16) 13 BUN (9 - 20 mg/dL) 64 H Creatinine (0.7 - 1.2 mg/dL) 4.2 H Estimated GFR (>60 ml/min) 14 L BUN/Creatinine Ratio (7 - 25 %) 15.2 Hematology CBC w Diff NO MAN DIFF REQ WBC (4.8 - 10.8 /CUMM) 22.7 H RBC (4.70 - 6.10 /CUMM) 2.73 L Hgb (14.0 - 18.0 G/DL) 8.6 L Hct (42 - 52 %) 25.8 L MCV (80.0 - 94.0 FL) 94.4 H MCH (27.0 - 31.0 PG) 31.4 H MCHC (33.0 - 37.0 G/DL) 33.3 RDW (11.5 - 14.5 %) 17.6 H Plt Count (130 - 400 /CUMM) 216 MPV (7.4 - 10.4 FL) 8.3 Gran % (42.2 - 75.2 %) 91.9 H Lymphocytes % (20.5 - 51.1 %) 3.4 L Monocytes % (1.7 - 9.3 %) 4.7 Eosinophils % (0 - 5 %) 0 Basophils % (0.0 - 2.0 %) 0 Absolute Granulocytes (1.4 - 6.5 /CUMM) 20.9 H Absolute Lymphocytes (1.2 - 3.4 /CUMM) 0.8 L Absolute Monocytes (0.10 - 0.60 /CUMM) 1.1 H Absolute Eosinophils (0.0 - 0.7 /CUMM) 0 Absolute Basophils (0.0 - 0.2 /CUMM) 0 Last 24 Hours of [place] Results: Blood cultures 2 December 05 negative Urine culture December 05 negative Assessment/Plan ID Impression: Improving, with temperatures remaining normal and white blood cell count decreased from yesterday, though still elevated, likely secondary to his underlying CML, now on Unasyn, Day 2 of treatment for a right inguinal cellulitis. Lyme disease is possible though, with the increased swelling and mild tenderness of the right thigh, this now seems less likely. As noted he does report a remote history of a bull's-eye rash in his left arm; therefore the Lyme titer may not be helpful. Suggestion: 1. Follow-up Lyme titer 2. Continue Unasyn
[2017-12-07 14:22] VITALS: BP 132/60
--- NOTE | 2017-12-07 21:32 | Patient Discharge Instructions ---
Discharge Instructions General Discharge Information You were seen/treated for: Scrotal Cellulitis You had these procedures: CT ABD/PELVIS Watch for these problems: Symptoms of fever, chills, fatigue, rash, joint pain, and muscle pain. Special Instructions: Please follow up with PCP in 7 days or sooner if redevelopment of symptoms of rash or fever. Please follow up with Roll Over Press Operator (Dr. Dumont) within the next two weeks. Please take PO Antibiotic medications as indicted twice per day. Diet Continue normal diet: Yes Recommended Diet: Regular Activity Full Activity/No Limits: No Activity Self Limited: Yes Acute Coronary Syndrome Inclusion Criteria At DC or during hospital stay patient has or had the following: ACS DIAGNOSIS No Discharge Core Measures Meds if any: Prescribed or Continued at Discharge Meds if any: NOT Prescribed or Continued at Discharge Congestive Heart Failure Inclusion Criteria At DC or during hospital stay patient has or had the following: CHF DIAGNOSIS No Discharge Core Measures Meds if any: Prescribed or Continued at Discharge Meds if any: NOT Prescribed or Continued at Discharge Cerebrovascular accident Inclusion Criteria At DC or during hospital stay patient has or had the following: CVA/TIA Diagnosis No Discharge Core Measures Meds if any: Prescribed or Continued at Discharge Meds if any: NOT Prescribed or Continued at Discharge Venous thromboembolism Inclusion Criteria VTE Diagnosis No VTE Type NONE VTE Confirmed by (Test) NONE Discharge Core Measures - Per Current guidelines, there needs to be overlap - treatment for the first 5 days of Warfarin therapy. - If discharged on Warfarin prior to 5 days of - overlap therapy, the patient will need to be - assessed for post discharge needs including - *Post discharge parental anticoagulation - *Warfarin and/or parental anticoagulation education - *Follow up date to check INR post discharge At least 5 days overlap therapy as Inpatient No Meds if any: Prescribed or Continued at Discharge Note: Overlap Therapy is Warfarin and Anticoagulant Meds if any: NOT Prescribed or Continued at Discharge
--- NOTE | 2017-12-07 22:17 | Cons- Nephrology ---
General Information and HPI Consulting Request Date of Consult: 12/07/17 Requested By: Ryder Chandler MD Reason for Consult: CKD with anemia Source of Information: patient, old records Exam Limitations: no limitations History of Present Illness: The patient is a 77-year-old man with known chronic kidney disease stage V for which she is followed in our office by Dr. Evin Dumont. Etiology of his CKD is thought to be hypertensive nephrosclerosis with gradually progressive disease over the past 10 years. He is also been treated for CML for for at least that period of time with Gleevec. He now comes in with a rash involving his right thigh and genitalia which has been improving with antibiotic therapy. The differential diagnosis is apparently included cellulitis and erythema chronicum migrans secondary to Lyme disease. His main complaint to me today is that he is due for his monthly Procrit injection of 45,000 units SQ. Renal function has been essentially stable during this hospitalization. Past medical history is positive for chronic kidney disease stage V secondary to hypertension, CML on Gleevec, melanoma, laparoscopic cholecystectomy, back surgery. 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 Allergies/Medications Allergies: Coded Allergies: acetaminophen (From PERCOCET) (Intermediate, HALLUCINATION 10/10/17) oxycodone (From PERCOCET) (Intermediate, HALLUCINATION 10/10/17) Home Med List: Amlodipine Besylate 5 MG TABLET 1 TAB PO DAILY htn (Reported) Atenolol 25 MG TABLET 1 TAB PO DAILY HTN (Reported) Augmentin (Augmentin 500-125 Tablet) 500 MG-125 MG TABLET 500 MG PO BID cellulitis Please take one tablet in the morning and one tablet in the evening. Imatinib Mesylate (Gleevec) 400 MG TABLET 400 MG PO DAILY cml (Reported) Prednisone 5 MG TABLET 2 TAB PO DAILY cml (Reported) Review of Systems Review of Systems Constitutional: Reports: no symptoms. EENTM: Reports: no symptoms. Cardiovascular: Reports: no symptoms. Respiratory: Reports: no symptoms. GI: Reports: no symptoms. Genitourinary: Reports: see HPI. Musculoskeletal: Reports: no symptoms. Skin: Reports: see HPI. Past History Travel History Traveled to [place] past 21 day No Medical History Blood Transfusion Hx: No Neurological: NONE EENT: NONE Cardiovascular: hypertension Respiratory: NONE Gastrointestinal: NONE Hepatic: NONE Renal: chronic kidney disease Musculoskeletal: NONE Psychiatric: NONE Endocrine: NONE Blood Disorders: NONE Cancer(s): melanoma, CML VENEER STACKER/Reproductive: NONE Surgical History Surgical History: 1 Psychosocial History Where Do You Live? Home Smoking Status: Never Smoked ETOH Use: denies use Illicit Drug Use: denies illicit drug use, UTD Exam & Diagnostic Data Vital Signs and I&O Vital Signs Date Time Temp Pulse Resp B/P B/P Pulse O2 O2 Flow FiO2 Mean Ox Delivery Rate 12/07 1422 98.5 57 16 132/60 98 Room Air 12/07 0939 64 120/60 12/07 0939 64 120/60 12/07 0651 98.5 64 18 120/60 98 Intake & Output 12/07 1600 12/07 0400 12/06 1600 12/06 0400 12/05 1600 12/05 0400 Intake Total 820 132 589 1873 Output Total 300 Balance 820 327 516 7627 Intake, IV 100 2350 Intake, Oral 720 240 870 Number 1 Bowel Movements Output, Urine 300 Patient 195 lb Weight Weight Bed scale Measurement Method Physical Exam: General: Well-developed, white male in NAD Skin: No jaundice; see below HEENT: Conjunctivae pink, sclerae anicteric, mucous membranes moist Neck: Without masses or thyromegaly, no palpable supraclavicular or cervical adenopathy Chest: Clear to P&A Heart: Regular rate and rhythm without S3 or rub Abdomen: Soft and nontender without palpable masses or organomegaly; +penile edema with scrotal erythema Extremities: Erythema right anterior thigh, no cyanosis or edema Neuro: Cognitively intact, no focal findings, no asterixis or myoclonus Assessment/Plan Assessment/Recommendations Assessment: 77yo man with multiple medical issues including hypertension, CKD stage IV-V and CML, maintained on Gleevec, now admitted with right thigh and scrotal rash thought to be a cellulitis but possibly erythema chronicum migrans 2/2 Lyme disease. In any case, it is apparently responding to abx rx. Renal fx is stable, albeit somewhat worse than recent baseline, and with a falling CO2 level. Hgb is also lower than baseline representing the anemia of CKD, presumably exacerbated by the presence of infection. Parenthetically, he is due for his monthly ILAN injection (45,000 units SQ). Recommendations: 1. Encourage po fluids but if creat begins to worsen will need IV NS 2. Add NaHCO3 650mg po tid 3. Epo 45,000 units SQ - can be done as outpt if he is discharged before weekend 4. Abx Rx per ID Thank you. Will f/u.
[2017-12-07 22:33] VITALS: BP 128/60
[2017-12-08 06:46] VITALS: BP 130/69
--- NOTE | 2017-12-08 07:06 | PN- Housestaff ---
See Addendum Subjective Follow-up For: Scrotal Cellulitis Subjective: Afebrile overnight. Patient is feeling fine this morning and slept well last night. Patient states he can not even recognize the rash anymore and says that it has almost disappeared. Patient has been taking his Gleevac for CML that his family brought in from the house. Patient has been eating and drinking well. Patient otherwise denies any symptoms of chest pain, dyspnea, fatigue, fevers, and chills. Review of Systems Constitutional: Reports: see HPI. Objective Last 24 Hrs of Vital Signs/I&O Vital Signs Date Time Temp Pulse Resp B/P B/P Pulse O2 O2 Flow FiO2 Mean Ox Delivery Rate 12/08 0646 98.4 60 18 130/69 98 Room Air 12/07 2233 98.7 62 20 128/60 96 Room Air 12/07 1422 98.5 57 16 132/60 98 Room Air 12/07 0939 64 120/60 12/07 0939 64 120/60 Intake & Output 12/08 0800 12/08 0000 12/07 1600 Intake Total 250 700 Output Total 600 400 Balance -600 -150 700 Intake, IV 100 Intake, Oral 250 600 Output, Urine 600 400 Physical Exam General Appearance: Alert, Oriented X3, Cooperative, No Acute Distress Skin: erythematous rash resolving in right inguinal region HEENT: Atraumatic Neck: Supple, No JVD Cardiovascular: Regular Rate, Normal S1, Normal S2 Lungs: Clear to Auscultation, Normal Air Movement Abdomen: Soft, No Tenderness Neurological: Normal Speech Extremities: No Edema, Normal Pulses Assessment/Plan Assessment: Mr Obrien is a 77yo M with PMH 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, CKD stage 4/5, melanoma, HTN, BIBA with scrotal swelling and fever, A/Ox3 but unable to give history; admitted for scrotal cellulitis #Scrotal Cellulitis -Area of erythema marked with surgical marker, improvement of erythema in right inguinal region with minimal areas of erythema remaining discontinued Fluconazole prior discharge - Sepsis ruled out due to not meeting criteria on admission and subsequently general improvement on examination #Toxic encephalopathy #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 Cellulitis Pain Ratin Pain Location: No pain elicited Pain Goal: Remain pain free Pain Plan: As above Tomorrow's Labs & Rationales: CBC BEP Discharge Plan Discharge Disposition: home
[2017-12-08 07:58] LABS: ABSOLUTE BASOPHIL COUNT 0 /CUMM (0.0-0.2); ABSOLUTE EOSINOPHIL COUNT 0.1 /CUMM (0.0-0.7); ABSOLUTE GRANULOCYTE CT 13.7 /CUMM (1.4-6.5); ABSOLUTE LYMPH COUNT 0.6 /CUMM (1.2-3.4); ABSOLUTE MONOCYTE COUNT 0.8 /CUMM (0.10-0.60); BASOPHIL % 0 % (0.0-2.0); EOSINOPHIL % 0.5 % (0-5); HEMATOCRIT 25.1 % (42-52); MEAN CORPUSCULAR HGB 31.5 PG (27.0-31.0); MEAN CORPUSCULAR HGB CONC 33.1 G/DL (33.0-37.0); MEAN CORPUSCULAR VOLUME 95.1 FL (80.0-94.0); MEAN PLATELET VOLUME 8.7 FL (7.4-10.4); PLATELET COUNT 216 /CUMM (130-400); RBC DISTRIBUTION WIDTH 17.7 % (11.5-14.5); RED BLOOD CELL CT 2.64 /CUMM (4.70-6.10); WHITE BLOOD CELL COUNT 15.2 /CUMM (4.8-10.8)
[2017-12-08 08:51] VITALS: BP 130/69
[2017-12-08 09:27] LABS: GRANULOCYTE % 90.2 % (42.2-75.2)
--- NOTE | 2017-12-08 12:15 | PN- Infect Dx ---
Subjective Subjective: Afebrile. He feels well with no complaints Objective Last 24 Hrs of Vital Signs/I&O Vital Signs Date Time Temp Pulse Resp B/P B/P Pulse O2 O2 Flow FiO2 Mean Ox Delivery Rate 12/08 0851 60 130/69 12/08 0850 60 130/69 12/08 0646 98.4 60 18 130/69 98 Room Air 12/07 2233 98.7 62 20 128/60 96 Room Air 12/07 1422 98.5 57 16 132/60 98 Room Air Intake & Output 12/08 1600 12/08 0800 12/08 0000 Intake Total 250 Output Total 1100 400 Balance -1100 -150 Intake, Oral 250 Output, Urine 1100 400 Physical Exam Other Physical Findings: He appears comfortable in no acute distress Extremities decreased erythema of the right inguinal area, with no tenderness; mild induration and edema of the right thigh, compared to the left thigh, persists Results Last 24 Hours of Lab Results: Laboratory Tests 12/08 12/07 0656 1550 Chemistry Sodium (137 - 145 mmol/L) 138 Potassium (3.5 - 5.1 mmol/L) 3.7 Chloride (98 - 107 mmol/L) 112 H Carbon Dioxide (22 - 30 mmol/L) 17 L Anion Gap (5 - 16) 9 BUN (9 - 20 mg/dL) 60 H Creatinine (0.7 - 1.2 mg/dL) 4.2 H Estimated GFR (>60 ml/min) 14 L BUN/Creatinine Ratio (7 - 25 %) 14.3 Hematology CBC w Diff NO MAN DIFF REQ WBC (4.8 - 10.8 /CUMM) 15.2 H RBC (4.70 - 6.10 /CUMM) 2.64 L Hgb (14.0 - 18.0 G/DL) 8.3 L Hct (42 - 52 %) 25.1 L MCV (80.0 - 94.0 FL) 95.1 H MCH (27.0 - 31.0 PG) 31.5 H MCHC (33.0 - 37.0 G/DL) 33.1 RDW (11.5 - 14.5 %) 17.7 H Plt Count (130 - 400 /CUMM) 216 MPV (7.4 - 10.4 FL) 8.7 Gran % (42.2 - 75.2 %) 90.2 H Lymphocytes % (20.5 - 51.1 %) 4.0 L Monocytes % (1.7 - 9.3 %) 5.3 Eosinophils % (0 - 5 %) 0.5 Basophils % (0.0 - 2.0 %) 0 Absolute Granulocytes (1.4 - 6.5 /CUMM) 13.7 H Absolute Lymphocytes (1.2 - 3.4 /CUMM) 0.6 L Absolute Monocytes (0.10 - 0.60 /CUMM) 0.8 H Absolute Eosinophils (0.0 - 0.7 /CUMM) 0.1 Absolute Basophils (0.0 - 0.2 /CUMM) 0 Serology Lyme Disease Antibody (RATIO) 0.03 Last 24 Hours of [place] Results: Blood cultures 2 December 05 negative Urine culture December 05 negative Assessment/Plan ID Impression: Continues to improve, with his temperatures remaining normal and his white blood cell count continuing to decrease, despite his underlying CML, on Unasyn, Day 3 of treatment for a right inguinal cellulitis. Lyme disease seems less likely, given the mild swelling and induration of the right thigh, and his Lyme titer, though not necessarily helpful in early Lyme, is negative. Suggestion: 1. Discontinue Unasyn 2. Begin Augmentin 500 mg p.o. every 12 hours for 4 more days
[2017-12-08] MEDS ORDERED: AUGMENTIN 500-1 EACH PO ×2 (14:22→14:44)
== END 2017-12-08 16:15 | DRG 602 ==
LOC: ERH 23:20 → ERHI 12-06 01:47 → 2NB 12-06 01:47 → ENRESERV 12-06 02:18 → 2NB 12-06 02:28 → ENTRNSPT 12-08 15:59 → EDTRNSPT 12-08 16:06 → EDTRNSPTSTS 12-08 16:06 → 2NB 12-08 16:15 → CMPTRNSPT 12-08 16:38
PROVIDERS: Emergency Medicine; Internal Medicine; Student in an Organized Health Care Education/Training Program
DX: L03.314 Cellulitis of groin (principal); G92 Toxic encephalopathy; C92.10 Chronic myeloid leukemia, BCR/ABL-positive, not having achieved remission; I12.0 Hypertensive chronic kidney disease with stage 5 chronic kidney disease or end stage renal disease; N18.5 Chronic kidney disease, stage 5; N49.2 Inflammatory disorders of scrotum; Z88.5 Allergy status to narcotic agent; R15.9 Full incontinence of feces; R32 Unspecified urinary incontinence; Z96.641 Presence of right artificial hip joint; Z98.1 Arthrodesis status; Z90.49 Acquired absence of other specified parts of digestive tract; Z87.891 Personal history of nicotine dependence; Z85.820 Personal history of malignant melanoma of skin
CPT/HCPCS: 2NSBP; 86618; 36592; 71045; 74176; 81001; 82436; 87040; 87086; 93005; 93010; 96374; 96375; 99291; J0131; J0713; J0885-EC; J1644; J3370; J3490; J7040; J7512